=== PATIENT | female | born 1980 | race Caucasian/White ===

== ENCOUNTER 2017-11-06 23:40 | Emergency (ER) | payer MEDICAID ==
[~2017-11-06] VITALS: Ht 162.6 cm; Wt 59.0 kg
[2017-11-06 23:40] VITALS: BP 130/92
[~2017-11-06 23:40] MED LIST: ATIVAN2 MG ORAL; DILANTIN100 MG ORAL; NKM; PENICILLIN V P500 MG PO
[2017-11-07 01:40] VITALS: BP 122/81
--- NOTE | 2017-11-07 03:12 | Emergency Room Report ---
History of Present Illness General Chief Complaint: Alcohol Intoxication Source: Patient, EMS Present Illness HPI 37-year-old female with unknown pmhx p/w alcohol intoxication. Patient admits to drinking alcohol, cannot quantify amount. Currently denying any complaints. Denies history of trauma No suicidal ideation denies any other drug use Allergies: Coded Allergies: No Known Allergies (Unverified , 07/19/13) UNABLE TO ASSESS (Unverified , 03/29/16) Patient History Past Medical History: see triage record Past Surgical History: none Pertinent Family History: none Last Menstrual Period: UNK Reviewed Nursing Documentation: PMH: Agreed, PSxH: Agreed Nursing Documentation-PMH Past Medical History: No Stated History Hx Seizures: Yes Review of Systems All Other Systems: negative except mentioned in HPI Physical Exam Vital Signs Date Time Temp Pulse Resp B/P (MAP) Pulse Ox O2 Delivery O2 Flow Rate FiO2 11/06/17 23:20 97.9 120 12 130/92 98 Room Air Sp02 EP Interpretation: reviewed, normal General Appearance: alert, non-toxic, other - intoxicated Head: normocephalic, atraumatic Eyes: bilateral eye normal inspection, bilateral eye PERRL, bilateral eye EOMI ENT: normal ENT inspection, normal pharynx, normal voice, moist mucus membranes Neck: normal inspection, full range of motion, supple Respiratory: normal inspection, lungs clear, normal breath sounds, no respiratory distress, no retraction, no wheezing, speaking full sentences, chest symmetrical Cardiovascular #1: normal inspection, regular rate, rhythm, no edema, normal capillary refill Cardiovascular #2: 2+ radial (R), 2+ radial (L) Gastrointestinal: normal inspection, non tender, soft, non-distended, no guarding Musculoskeletal: normal inspection, back normal, normal range of motion, non- tender Neurologic: responsive, motor strength/tone normal, sensory intact, normal gait , speech normal, other - intoxicated but cooperative Psychiatric: memory normal, no suicidal/homicidal ideation, no delusions Skin: normal inspection, normal color, no rash, warm/dry, well hydrated, normal turgor Medical Decision Making Diagnostic Impression: Primary Impression: Acute alcoholic intoxication ER Course 37-year-old female with alcohol intoxication DDX: Likely alcohol intoxication No signs of trauma Plan: pending sobriety ER course: Patient has remained stable during ED stay. Has been ambulatory in the emergency room now clinically sober, aox4, no si, will DC home Disposition: Patient is to be discharged to home. Patient is instructed to follow up with their primary care doctor within 5 days. Please note that this Emergency Department Report was dictated using [employer] sales and marketing technology software, occasionally this can lead to erroneous entry secondary to interpretation by the dictation equipment Last Vital Signs Date Time Temp Pulse Resp B/P (MAP) Pulse Ox O2 Delivery O2 Flow Rate FiO2 11/06/17 23:40 97.9 120 12 130/92 98 Room Air Disposition: HOME, SELF-CARE Condition: Improved Patient Instructions: Alcohol Intoxication, [id number] Radha Bansal M.D. Nov 07, 2017 03:11
[2017-11-07 03:40] VITALS: BP 131/78
[2017-11-07 05:40] VITALS: BP 122/81
[2017-11-07 06:14] VITALS: BP 133/87
== END 2017-11-07 06:14 | disposition home or self-care (01) ==
LOC: EDBD 23:40 → EMR 23:40
DX: F10.129 Alcohol abuse with intoxication, unspecified (principal)
CPT/HCPCS: 99285

== ENCOUNTER 2018-08-12 03:17 | Emergency (ER) | payer MEDICAID ==
[~2018-08-12] VITALS: Ht 154.9 cm; Wt 59.0 kg
[2018-08-12 03:25] VITALS: BP 120/82
[2018-08-12 06:31] VITALS: BP 104/68
--- NOTE | 2018-08-13 15:01 | Emergency Room Report ---
History of Present Illness General Chief Complaint: Behavioral Complaint Source: Patient, EMS Present Illness HPI 38-year-old female presents ED for evaluation. Patient brought in by EMS. Patient was staying at hotel and was kicked out as per EMS. Patient then allegedly had a seizure; patient walked across the lobby, convulsing, stating " I am having a seizure". Upon arrival patient is sleeping. Admits to alcohol use. Denies drug use. Denies any suicidal or homicidal ideation. No other aggravating relieving factors. No other associated symptoms Allergies: Coded Allergies: No Known Allergies (Unverified , 07/19/13) UNABLE TO ASSESS (Unverified , 03/29/16) Patient History Past Medical History: psych hx Past Surgical History: none Pertinent Family History: none Social History: Reports: alcohol use; Denies: smoking, drug use Last Menstrual Period: a year ago Now: No Immunizations: UTD Reviewed Nursing Documentation: PMH: Agreed; PSxH: Agreed Nursing Documentation-PMH Hx Seizures: Yes Review of Systems All Other Systems: negative except mentioned in HPI Physical Exam Vital Signs Date Time Temp Pulse Resp B/P (MAP) Pulse Ox O2 Delivery O2 Flow Rate FiO2 08/12/18 03:23 98.3 86 18 120/82 100 Room Air 98.2 Sp02 EP Interpretation: reviewed, normal General Appearance: lethargic Head: normocephalic, atraumatic Eyes: bilateral eye normal inspection, bilateral eye PERRL ENT: hearing grossly normal, normal pharynx, no angioedema, normal voice Neck: full range of motion, supple/symm/no masses Respiratory: chest non-tender, lungs clear, normal breath sounds, speaking full sentences Cardiovascular #1: regular rate, rhythm, no edema Cardiovascular #2: 2+ carotid (R), 2+ carotid (L), 2+ radial (R), 2+ radial (L) , 2+ dorsalis pedis (R), 2+ dorsalis pedis (L) Gastrointestinal: normal bowel sounds, non tender, soft, non-distended, no guarding, no rebound Rectal: deferred Genitourinary: normal inspection, no CVA tenderness Musculoskeletal: back normal, gait/station normal, normal range of motion, non- tender Neurologic: alert, oriented x3, responsive, motor strength/tone normal, sensory intact, speech normal Psychiatric: judgement/insight normal, memory normal, no suicidal/homicidal ideation, anxious Reflexes: 3+ bicep (R), 3+ bicep (L), 3+ tricep (R), 3+ tricep (L), 3+ knee (R) , 3+ knee (L) Skin: normal color, no rash, warm/dry, well hydrated Lymphatic: no adenopathy Medical Decision Making Diagnostic Impression: Primary Impression: Acute alcoholic intoxication Qualified Codes: F10.929 - Alcohol use, unspecified with intoxication, unspecified ER Course Hospital Course 38-year-old female presents to ED status post EtOH intoxication. Clinical course Patient placed on stretcher. Given that patient is able to provide an adequate history, I see no need to check blood work or place an IV. Patient allowed to sleep. My assessment shows no evidence of SI/HI requiring psychiatric evaluation. Given the patient was alert oriented, ambulating during her alleged seizure I do not suspect patient was having a seizure. Patient allowed to rest in now awake alert oriented x3. Patient is safe for discharge Diagnosis - ETOH intoxication stable and discharged to home. Followup with PMD. Return to ED if symptoms recur or worsen Last Vital Signs Date Time Temp Pulse Resp B/P (MAP) Pulse Ox O2 Delivery O2 Flow Rate FiO2 08/12/18 06:31 98.3 93 20 104/68 95 Room Air Status: improved Disposition: HOME, SELF-CARE Condition: Stable Referrals: [facility],REFERRING (PCP) Patient Instructions: Alcohol Intoxication, [id number] Saeid Reeves MD Aug 13, 2018 15:01
== END 2018-08-12 06:31 | disposition home or self-care (01) ==
LOC: EDBD 03:17 → EMR 03:30
DX: F10.929 Alcohol use, unspecified with intoxication, unspecified (principal)
CPT/HCPCS: 99283

== ENCOUNTER 2019-04-30 15:47 | Emergency (ER) | payer MEDICAID ==
[~2019-04-30] VITALS: Ht 162.6 cm; Wt 65.8 kg
[~2019-04-30 15:47] MED LIST changes: +Haloperidol 5mg/ml Inj IM ONE; +LORazepam Inj 2mg/ml 1ml IM ONE; +ZOLOFT25 MG ORAL
[2019-04-30 15:50] VITALS: BP 142/71
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
[2019-04-30] MEDS ORDERED: LORazepam Inj 2mg/ml 1ml ONE (16:22)
[2019-04-30 16:48] LABS: APPEARANCE,URINE CLEAR; BILIRUBIN, URINE NEGATIVE (NEGATIVE); COLOR,URINE PALE YELLOW; GLUCOSE, URINE (UA) NEGATIVE (NEGATIVE); KETONES,URINE NEGATIVE (NEGATIVE); LEUKOCYTE ESTERASE ,URINE NEGATIVE (NEGATIVE); NITRITE,URINE NEGATIVE (NEGATIVE); PH,URINE 6.5 (4.5-8.0); PROTEIN,URINE NEGATIVE (NEGATIVE); UROBILINOGEN,URINE NORMAL MG/DL (0.0-1.0)
[2019-04-30 16:50] LABS: BASOPHILS % (AUTO) 1.5 % (0.0-2.0); EOSINOPHILS % (AUTO) 0.9 % (0.0-3.0); HEMATOCRIT 41.4 % (37.0-47.0); HEMOGLOBIN 13.7 G/DL (12.0-16.0); LYMPHOCYTES % (AUTO) 48.6 % (20.0-45.0); MEAN CORPUSCULAR VOLUME 90 FL (80-99); NEUTROPHILS % (AUTO) 41.1 % (45.0-75.0); PLATELET COUNT 401 K/UL (150-450); RED BLOOD COUNT 4.59 M/UL (4.20-5.40); RED CELL DISTRIBUTION WIDTH 11.1 % (11.6-14.8); WHITE BLOOD COUNT 5.1 K/UL (4.8-10.8)
[2019-04-30 16:56] LABS: ANION GAP 8 mmol/L (5-15); BLOOD UREA NITROGEN 6 mg/dL (7-18); CALCIUM 8.9 MG/DL (8.5-10.1); CARBON DIOXIDE 29 MMOL/L (21-32); CHLORIDE 109 MMOL/L (98-107); CREATININE 0.6 MG/DL (0.55-1.30); POTASSIUM 4.4 MMOL/L (3.5-5.1); SODIUM 145 MMOL/L (136-145)
[2019-04-30 17:02] LABS: ALANINE AMINOTRANSFERASE 54 U/L (12-78); ALBUMIN 3.7 G/DL (3.4-5.0); ALBUMIN/GLOBULIN RATIO 0.9 (1.0-2.7); ALKALINE PHOSPHATASE 52 U/L (46-116); ASPARTATE AMINO TRANSFERASE 46 U/L (15-37); BILIRUBIN,TOTAL 0.3 MG/DL (0.2-1.0)
[2019-04-30 17:44] VITALS: BP 133/70
== END 2019-04-30 18:03 | disposition home or self-care (01) ==
LOC: EDBD 15:47 → EMR 17:29
DX: R45.1 Restlessness and agitation (principal); F10.120 Alcohol abuse with intoxication, uncomplicated; E11.9 Type 2 diabetes mellitus without complications; F32.9 Major depressive disorder, single episode, unspecified; Z79.899 Other long term (current) drug therapy
CPT/HCPCS: 36415; 80053; 80185; 80307; 80329; 81003; 84703; 85025; 96372; 99283

== ENCOUNTER 2020-03-14 03:33 | Emergency (ER) | payer MEDICAID ==
[~2020-03-14] VITALS: Ht 157.5 cm; Wt 72.6 kg
[~2020-03-14 03:33] MED LIST changes: -Haloperidol 5mg/ml Inj IM ONE; -LORazepam Inj 2mg/ml 1ml IM ONE
[2020-03-14 03:35] VITALS: BP 120/70
[2020-03-14] MEDS ORDERED: Tetanus/Diptheria/Pertussis IM ONE ×2 (03:45→07:34)
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
[2020-03-14 04:00] VITALS: BP 124/68
[2020-03-14 04:27] LABS: APPEARANCE,URINE CLEAR; BILIRUBIN, URINE NEGATIVE (NEGATIVE); GLUCOSE, URINE (UA) NEGATIVE (NEGATIVE); KETONES,URINE NEGATIVE (NEGATIVE); LEUKOCYTE ESTERASE ,URINE NEGATIVE (NEGATIVE); NITRITE,URINE NEGATIVE (NEGATIVE); PH,URINE 5 (4.5-8.0); PROTEIN,URINE NEGATIVE (NEGATIVE); UROBILINOGEN,URINE NORMAL MG/DL (0.0-1.0)
[2020-03-14 04:32] LABS: BASOPHILS % (AUTO) 0.8 % (0.0-2.0); EOSINOPHILS % (AUTO) 3.3 % (0.0-3.0); HEMATOCRIT 39.4 % (37.0-47.0); HEMOGLOBIN 13.5 G/DL (12.0-16.0); LYMPHOCYTES % (AUTO) 53.3 % (20.0-45.0); MEAN CORPUSCULAR VOLUME 86 FL (80-99); NEUTROPHILS % (AUTO) 31.7 % (45.0-75.0); PLATELET COUNT 271 K/UL (150-450); RED BLOOD COUNT 4.56 M/UL (4.20-5.40); RED CELL DISTRIBUTION WIDTH 12.4 % (11.6-14.8); WHITE BLOOD COUNT 4.5 K/UL (4.8-10.8)
[2020-03-14 04:50] LABS: COLOR,URINE YELLOW
[2020-03-14 05:02] LABS: ANION GAP 13 mmol/L (5-15); BLOOD UREA NITROGEN 11 mg/dL (7-18); CALCIUM 8.2 MG/DL (8.5-10.1); CARBON DIOXIDE 24 MMOL/L (21-32); CHLORIDE 108 MMOL/L (98-107); CREATININE 0.6 MG/DL (0.55-1.30); POTASSIUM 3.5 MMOL/L (3.5-5.1); SODIUM 145 MMOL/L (136-145)
[2020-03-14 05:07] LABS: ALANINE AMINOTRANSFERASE 44 U/L (12-78); ALBUMIN 3.7 G/DL (3.4-5.0); ALKALINE PHOSPHATASE 47 U/L (46-116); ASPARTATE AMINO TRANSFERASE 39 U/L (15-37); BILIRUBIN,TOTAL 0.3 MG/DL (0.2-1.0)
[2020-03-14 05:30] VITALS: BP 118/85
[2020-03-14 07:20] VITALS: BP 120/71
[2020-03-14] MEDS ORDERED: Hydrogen Peroxide 473ml Bottle TOPIC ONE ×2 (07:32→07:45)
[2020-03-14] MEDS ORDERED: Bacitracin Oint UD TOPIC ONE ×2 (08:34→08:45)
[2020-03-14] MEDS ORDERED: ABILIFY2 MG ORAL (08:48)
[2020-03-14 10:19] VITALS: BP 117/70
== END 2020-03-14 10:27 | disposition home or self-care (01) ==
LOC: EDBD 03:33 → EMR 03:55
DX: F10.129 Alcohol abuse with intoxication, unspecified (principal); S51.812A Laceration without foreign body of left forearm, initial encounter; X78.8XXA Intentional self-harm by other sharp object, initial encounter; Y92.9 Unspecified place or not applicable; E11.9 Type 2 diabetes mellitus without complications; G40.909 Epilepsy, unspecified, not intractable, without status epilepticus; F32.9 Major depressive disorder, single episode, unspecified; Z23 Encounter for immunization
CPT/HCPCS: 36415; 80053; 80307; 81003; 81025; 85025; 90471; 90715; G0480; G0481; Z7502; 99284

== ENCOUNTER 2020-04-17 03:36 | Emergency (ER) | payer MEDICAID ==
[~2020-04-17] VITALS: Ht 167.6 cm; Wt 68.0 kg
[~2020-04-17 03:36] MED LIST changes: +ABILIFY2 MG ORAL
--- NOTE | 2020-04-17 03:40 | NUR ---
ED Nurse Note: Pt brought in by [facility] from [facility], pt stated she drank earlier, unknown amount, pt laying in bed with eyes closed, slurring words, unable to voice whats wrong. VSS. Pt denies drug use. ERMD at bedside
[2020-04-17 03:46] VITALS: BP 117/84
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
--- NOTE | 2020-04-17 05:30 | NUR ---
ED Nurse Note: pt resting in bed comfortably. will continue to monitor.
[2020-04-17 05:50] VITALS: BP 113/76
[2020-04-17 06:12] VITALS: BP 113/76
--- NOTE | 2020-04-17 06:12 | NUR ---
ER DISCHARGE NOTE: Patient is cleared to be discharged home per ERMD, pt is aox4, 99% on room air, with stable vital signs. pt was given dc instructions, pt was able to verbalize understanding, pt id band. pt is able to ambulate with steady gait. pt took all belongings.
== END 2020-04-17 06:12 | disposition home or self-care (01) ==
LOC: EDBD 03:36 → EDUNIT# 03:36 → EMR 03:50
DX: F10.129 Alcohol abuse with intoxication, unspecified (principal); E11.9 Type 2 diabetes mellitus without complications; G40.909 Epilepsy, unspecified, not intractable, without status epilepticus; F32.9 Major depressive disorder, single episode, unspecified
CPT/HCPCS: 99283